=== PATIENT | female | born 1975 | race Caucasian/White ===

== ENCOUNTER 2016-05-27 21:06 | Emergency (ER) | payer MEDICAID ==
[~2016-05-27] VITALS: Ht 152.4 cm; Wt 72.5 kg
[2016-05-27 21:12] VITALS: Ht 152.4 cm; Wt 72.5 kg
[2016-05-27] MEDS ORDERED: FAMOTIDINE 20 MG TAB PO STA (23:05)
[2016-05-27] MEDS ORDERED: ONDANSETRON 4 MG INJ IV STA (23:05)
[2016-05-27] MEDS ORDERED: LIDOCAINE/MYLANTA 40 ML BTL PO STA (23:05)
[2016-05-27 23:15] LABS: URINE BLOOD (Dip) POC Negative (NEGATIVE)
[2016-05-27] MEDS ORDERED: morphine 2 MG INJ IV ONE (23:30)
[2016-05-27] MEDS ORDERED: SOD CHLORIDE 0.9% 1,000 ML IV ONE (23:30)
[2016-05-28 00:06] LABS: ALBUMIN 4.3 g/dl (3.3-4.9)
[2016-05-28 00:07] LABS: POTASSIUM 4.1 mmol/L (3.5-5.1)
[2016-05-28 00:09] LABS: CREATININE 0.7 mg/dl (0.44-1.00)
[2016-05-28 00:09] LABS: ADD UMIC NO; URINE BILIRUBIN (Dip) NEGATIVE (NEGATIVE); URINE BLOOD (Dip) NEGATIVE (NEGATIVE); URINE COLOR LT. YELLOW (YELLOW); URINE GLUCOSE (Dip) NEGATIVE (NEGATIVE); URINE KETONES (Dip) NEGATIVE (NEGATIVE); URINE LEUKOCYTE ESTERASE (Dip) NEGATIVE (NEGATIVE); URINE NITRITE (Dip) NEGATIVE (NEGATIVE); URINE TOTAL PROTEIN (Dip) NEGATIVE (NEGATIVE); URINE UROBILINOGEN (Dip) 0.2 E.U./dL (0.1-1.0)
[2016-05-28 00:10] LABS: ALBUMIN/GLOBULIN RATIO 1.3; CALCIUM 8.9 mg/dl (8.4-10.2); TOTAL PROTEIN 7.6 g/dl (6.1-8.1)
--- NOTE | 2016-05-28 01:22 | RADRPT ---
PROCEDURE: ULTRASOUND LIMITED ABDOMEN CLINICAL INDICATION: 40-year-old female with right upper quadrant pain. TECHNIQUE: Multiple sonographic of the right upper quadrant of the abdomen were obtained. The imag es were reviewed on a PACS workstation. COMPARISON: None. FINDINGS: The pancreas is partially visualized and is otherwise without abnormal echogenicity. The liver displays normal echogenicity. The liver measures 15.9 cm in length. No evidence of intrah epatic biliary ductal dilatation is seen. The portal and hepatic veins are unremarkable. The gallbladder demonstrates no wall thickening, sludge, nor stones. No pericholecystic fluid is see n. The common bile duct measures 4.5 mm and is not dilated. The right kidney displays normal echogenicity. The right kidney measures 9.6 x 4.3 x 4.8 cm. No ish ectasis or hydronephrosis is seen. No free fluid is seen. IMPRESSION: Unremarkable right upper quadrant abdominal ultrasound. .Alexi Castro MD, Date Time Electronically viewed and signed by .Alexi Castro MD, on 05/28/2016 01:21 .Ari/
[2016-05-28 01:32] LABS: BASOPHIL # 0.1 10^3/ul (0.0-0.1); BASOPHILS % 0.7 % (0.0-2.0); EOSINOPHILS # 0.4 10^3/ul (0.0-0.5); EOSINOPHILS % 3.9 % (0.0-7.0); HEMATOCRIT 38.1 % (37.0-47.0); HEMOGLOBIN 12.7 g/dl (12.0-16.0); LYMPHOCYTES # 4.7 10^3/ul (0.8-2.9); LYMPHOCYTES % 43.3 % (15.0-51.0); MEAN CORPUSCULAR HEMOGLOBIN 30.6 pg (29.0-33.0); MEAN CORPUSCULAR HGB CONC 33.3 g/dl (32.0-37.0); MEAN CORPUSCULAR VOLUME 91.8 fl (82.0-101.0); MEAN PLATELET VOLUME 10.1 fl (7.4-10.4); MONOCYTE # 0.6 10^3/ul (0.3-0.9); MONOCYTES % 5.7 % (0.0-11.0); PLATELET COUNT 368 10^3/UL (140-415); RED BLOOD COUNT 4.15 10^6/ul (4.20-5.40); RED CELL DISTRIBUTION WIDTH 12.8 % (11.5-14.5); WHITE BLOOD COUNT 10.9 10^3/ul (4.8-10.8)
--- NOTE | 2016-05-28 01:36 | ERD ---
ER Documentation Chief Complaint Date/Time DATE: 05/28/16 TIME: 01:34 Chief Complaint L sided abdominal pain/swelling x 3 days 09/23, denies n/v/d HPI This patient is a 40-year-old female with no significant medical history presenting to the emergency department for midepigastric pain ongoing intermittently for the past 4 days. She states the pain is worsening now. The pain is constant. She has never had this pain in the past. She took no medications at home for the relief of symptoms. She denies any fevers, chills, nausea, vomiting, diarrhea, or other symptoms at this time. ROS All systems reviewed and are negative except as per history of present illness. Medications Home Meds Active Scripts Omeprazole* (Omeprazole*) 20 Mg Capsule., 20 MG PO DAILY, #20 Prov:DEL PENA PA-C 05/28/16 Allergies Allergies: Coded Allergies: No Known Allergy (Verified , 09/29/13) PMhx/Soc Medical and Surgical Hx: pt denies Medical Hx History of Surgery: Yes (c sections ) Anesthesia Reaction: No Hx Neurological Disorder: No Hx Respiratory Disorders: No Hx Cardiac Disorders: No Hx Psychiatric Problems: No Hx Miscellaneous Medical Probl: Yes (chronic wrist pain) Hx Alcohol Use: No Hx Substance Use: No Hx Tobacco Use: No FmHx Family History: diabetes Physical Exam Vitals Vital Signs Date Time Temp Pulse Resp B/P Pulse Ox O2 Delivery O2 Flow Rate FiO2 05/28/16 02:07 97.8 73 16 139/87 99 Room Air 05/27/16 21:12 98.3 71 20 135/74 99 Physical Exam INITIAL VITAL SIGNS: Reviewed by me. GENERAL: Alert and interactive. No acute distress. HEAD: Head is normocephalic and atraumatic. EYES: EOMI. No scleral icterus. No conjunctival injection. ENT: Moist mucosa. NECK: Supple. Full range of motion. RESPIRATORY: Normal respiratory effort. Clear breath sounds bilaterally. No wheezing, rales, or rhonchi. CV: Regular rate and rhythm. Normal S1 S2. No S3 or S4. No murmurs. ABDOMEN: Soft, non-distended, mild tenderness to palpation of the midepigastric region. No guarding. No rebound. No masses. EXTREMITIES: No deformity. SKIN: Warm and dry. NEUROLOGIC: Alert and oriented x 4. Speech is normal. Moves all extremities equally. No motor or sensory deficits noted. Result Diagram: 05/27/16 2344 05/27/16 2344 Results 24 hrs Laboratory Tests Test 05/27/16 23:17 05/27/16 23:36 05/27/16 23:44 Bedside Urine Blood Negative Bedside Urine Glucose (UA) Negative Bedside Urine Ketones (LAB) Negative Bedside Urine Leukocyte Esterase (L Negative Bedside Urine Nitrite (LAB) Negative Bedside Urine Protein (LAB) Negative Bedside Urine pH (LAB) 7.5 Urine Bilirubin NEGATIVE Urine Clarity CLEAR Urine Color LT. YELLOW Urine Glucose NEGATIVE% Urine Hemoglobin NEGATIVE Urine Ketones NEGATIVE Urine Leukocyte Esterase NEGATIVE Urine Nitrite NEGATIVE Urine Specific [place] 1.015 Urine Total Protein NEGATIVE Urine Urobilinogen 0.2 E.U./dL Urine pH 8.0 Alanine Aminotransferase (ALT/SGPT) 21IU/L Albumin 4.3g/dl Albumin/Globulin Ratio 1.30 Alkaline Phosphatase 63IU/L Anion Gap 19 Aspartate Amino Transf (AST/SGOT) 19IU/L Basophils # 0.110^3/ul Basophils % 0.7% Blood Urea Nitrogen 22mg/dl Calcium Level 8.9mg/dl Carbon Dioxide Level 24mmol/L Chloride Level 103mmol/L Creatinine 0.70mg/dl Direct Bilirubin 0.00mg/dl Eosinophils # 0.410^3/ul Eosinophils % 3.9% Globulin 3.30g/dl Glucose Level 95mg/dl Hematocrit 38.1% Hemoglobin 12.7g/dl Indirect Bilirubin 0.0mg/dl Lipase 148U/L Lymphocytes # 4.710^3/ul Lymphocytes % 43.3% Mean Corpuscular Hemoglobin 30.6pg Mean Corpuscular Hemoglobin Concent 33.3g/dl Mean Corpuscular Volume 91.8fl Mean Platelet Volume 10.1fl Monocytes # 0.610^3/ul Monocytes % 5.7% Neutrophils # 5.010^3/ul Neutrophils % 46.0% Nucleated Red Blood Cells # 0.010^3/ul Nucleated Red Blood Cells % 0.0/100WBC Platelet Count 77509^3/UL Potassium Level 4.1mmol/L Red Blood Count 4.1510^6/ul Red Cell Distribution Width 12.8% Sodium Level 142mmol/L Total Bilirubin 0.0mg/dl Total Protein 7.6g/dl White Blood Count 10.910^3/ul Current Medications Medications (Trade) Dose Ordered Sig/Wandy Route PRN Reason Start Time Stop Time Status Last Admin Dose Admin Famotidine (Pepcid) 20 mg ONCE STAT PO 05/27/16 23:05 05/27/16 23:06 05/27/16 23:50 Miscellaneous Medication 40 ml 40 ml ONCE STAT PO 05/27/16 23:05 05/27/16 23:06 05/27/16 23:50 Sodium Chloride (NS) 1,000 ml @ 1,000 mls/hr Q1H ONCE IV 05/27/16 23:30 05/28/16 00:29 05/27/16 23:50 Morphine Sulfate (morphine) 2 mg ONCE ONCE IV 05/27/16 23:30 05/27/16 23:31 05/27/16 23:50 Ondansetron HCl (Zofran Inj) 4 mg ONCE STAT IV 05/27/16 23:05 05/27/16 23:06 05/27/16 23:50 Procedures/MDM EMERGENCY DEPARTMENT COURSE / MEDICAL DECISION MAKING: This is a 40-year-old female who comes to the emergency room secondary to complaints of midepigastric pain. The patient was given GI cocktail, IV fluids, IV morphine, and IV Zofran in the department. On re-evaluation, the patient was feeling improved. Lab results reviewed and showed no significant acute abnormality. UA results were not concerning for urinary tract infection. Radiology: PROCEDURE: ULTRASOUND LIMITED ABDOMEN CLINICAL INDICATION: 40-year-old female with right upper quadrant pain. TECHNIQUE: Multiple sonographic of the right upper quadrant of the abdomen were obtained. The images were reviewed on a PACS workstation. COMPARISON: None. FINDINGS: The pancreas is partially visualized and is otherwise without abnormal echogenicity. The liver displays normal echogenicity. The liver measures 15.9 cm in length. No evidence of intrahepatic biliary ductal dilatation is seen. The portal and hepatic veins are unremarkable. The gallbladder demonstrates no wall thickening, sludge, nor stones. No pericholecystic fluid is seen. The common bile duct measures 4.5 mm and is not dilated. The right kidney displays normal echogenicity. The right kidney measures 9.6 x 4.3 x 4.8 cm. No caliectasis or hydronephrosis is seen. No free fluid is seen. IMPRESSION: Unremarkable right upper quadrant abdominal ultrasound. .Alexi Castro MD, Date Time Electronically viewed and signed by .Alexi Castro MD, on 05/28/2016 01:21 The primary diagnosis is abdominal pain of unclear etiology. I suspect GERD. I have low suspicion for bowel obstruction, cholecystitis, cholelithiasis, nephrolithiasis, pneumothorax, or other emergent conditions at this time. Discharge: I have discussed the lab results and diagnostic findings with the patient and answered any questions or concerns. The patient was discharged with a prescription for omeprazole. The patient was advised to followup with their PMD in 1-2 days and to return to the Emergency Department if there are any new or worsening symptoms. The patient understood and agreed with the diagnosis, treatment and plan. The patient is stable for discharge at this time. Departure Diagnosis: Primary Impression: Abdominal pain Abdominal location: epigastric Qualified Code: R10.13 - Epigastric pain Condition: Stable Patient Instructions: Abdominal Pain [facility] Additional Instructions: No mas mejor en 2-3 bird, regresar. Mas peor en 24 horas, regresear rapidamente. Ir a doctor primario in 5-7 bird. Usar instrucciones cuando mike medicamento. DEL PENA PA-C May 28, 2016 01:36
[2016-05-28] MEDS ORDERED: OMEP20CA16 PO (01:38)
[2016-05-28 02:07] VITALS: BP 139/87; PULSE 73; RESP 16; TEMP 97.8
== END 2016-05-28 02:24 | disposition home or self-care (01) ==
LOC: FTE 21:06
DX: R10.13 Epigastric pain (principal)
CPT/HCPCS: 36415; 76705; 80053; 81003; 83690; 85025; 87086; 96374; 96375; J2270; J2405; J7030; Z7502; Z7610